=== PATIENT | female | born 1970 | race Caucasian/White ===

== ENCOUNTER 2016-09-19 21:42 | Emergency (ER) | payer BC ==
[2016-09-19 21:51] VITALS: RESP 16; TEMP 97.9
[2016-09-19] MEDS ORDERED: PROPARACAINE 0.5% 15 ML OPHT DROP LEFTEYE ONE (22:17)
[2016-09-19] MEDS ORDERED: FLUORESCEIN SODIUM 1 MG STRIP OP ONE ×2 (22:17→22:18)
[2016-09-19] MEDS ORDERED: PROPARACAINE 0.5% 15 ML OPHT DROP ONE (22:18)
[2016-09-19] MEDS ORDERED: OFLOXACIN 0.3% SOLN PREPACK OPHT.BTL TAKEHOME ONE (22:23)
[2016-09-19] MEDS ORDERED: KETOROLAC 0.5% 5 ML OPHT.BTL LEFTEYE ONE (22:23)
--- NOTE | 2016-09-19 22:27 | EDPHY ---
H & P Stated Complaint: scratched L eye Time Seen by Provider: 09/19/16 22:16 HPI/ROS: CHIEF COMPLAINT: Corneal abrasion HISTORY OF PRESENT ILLNESS: The patient is a 45-year-old female who comes to the emergency department complaining of an abrasion to her left eye. She states that she scraped her cornea when [place]. She has had a corneal abrasion in the past states that this feels very similar. She has not had any discharge. She has not had any vision changes. No photophobia. REVIEW OF SYSTEMS: Constitutional: denies: chills, fever, recent illness, recent injury EENTM: See HPI Respiratory: denies: cough, shortness of breath Cardiac: denies: chest pain, irregular heart rate, lightheadedness, palpitations Gastrointestinal/Abdominal: denies: abdominal pain, diarrhea, nausea, vomiting, blood streaked stools Genitourinary: denies: dysuria, frequency, hematuria, pain Musculoskeletal: denies: joint pain, muscle pain Skin: denies: lesions, rash, jaundice, bruising Neurological: denies: headache, numbness, paresthesia, tingling, dizziness, weakness Hematologic/Lymphatic: denies: blood clots, easy bleeding, easy bruising Immunologic/allergic: denies: HIV/AIDS, transplant EXAM: GENERAL: Well-appearing, well-nourished and in no acute distress. HEAD: Atraumatic, normocephalic. EYES: Small abrasion over the lateral aspect of cornea seen with fluorescein and proparacaine. Pupils equal round and reactive to light, extraocular movements intact, sclera anicteric. ENT: TMs normal, nares patent, oropharynx clear without exudates. Moist mucous membranes. NECK: Normal range of motion, supple without lymphadenopathy or JVD. LUNGS: Breath sounds clear to auscultation bilaterally and equal. No wheezes rales or rhonchi. HEART: Regular rate and rhythm without murmurs, rubs or gallops. ABDOMEN: Soft, nontender, normoactive bowel sounds. No guarding, no rebound. No masses appreciated. BACK: No CVA tenderness, no spinal tenderness, step-offs or deformities EXTREMITIES: Normal range of motion, no pitting or edema. No clubbing or cyanosis. NEUROLOGICAL: Cranial nerves II through XII grossly intact. Normal speech, normal gait. 5/5 strength, normal movement in all extremities, normal sensation PSYCH: Normal mood, normal affect. SKIN: Warm, dry, normal turgor, no visible rashes or lesions. Source: Patient Exam Limitations: No limitations - Personal History LMP (Females 10-55): Now Current Tetanus/Diphtheria Vaccine: Unsure Current Tetanus Diphtheria and Acellular Pertussis (TDAP): Unsure - Medical/Surgical History Hx Asthma: Yes Hx Chronic Respiratory Disease: No Hx Diabetes: No Hx Cardiac Disease: No Hx Renal Disease: No Hx Cirrhosis: No Hx Alcoholism: No Hx HIV/AIDS: No Hx Splenectomy or Spleen Trauma: No Other PMH: depression, asthma - Family History Significant Family History: No pertinent family hx - Social History Smoking Status: Never smoked Alcohol Use: Sober Drug Use: None Constitutional: Initial Vital Signs Temperature (C) 36.6 C 09/19/16 21:44 Heart Rate 94 09/19/16 21:44 Respiratory Rate 16 09/19/16 21:44 Blood Pressure 132/84 H 09/19/16 21:44 O2 Sat (%) 94 09/19/16 21:44 O2 Delivery Mode Room Air Allergies/Adverse Reactions: amoxicillin [From Augmentin] Allergy (Verified 09/19/16 21:48) clavulanic acid [From Augmentin] Allergy (Verified 09/19/16 21:48) Home Medications: Medication Instructions Recorded Wellbutrin Sr 09/19/16 Medical Decision Making ED Course/Re-evaluation: I will treat the patient's abrasion with antibiotic drops as well as ketorolac drops. She is happy with this plan and declines further workup or testing. I will refer her to Ophthalmology this appears to be very minor abrasion and will likely heal well. Differential Diagnosis: Partial list of the Differential diagnosis considered include but were not limited to; corneal abrasion, foreign body and although unlikely based on the history and physical exam, I also considered rust ring, ruptured globe, glaucoma. I discussed these differential diagnoses and the plan with the patient as well as the usual and expected course. The patient understands that the diagnosis is provisional and that in medicine we are not always correct and that further workup is often warranted. Usual and customary warnings were given. All of the patient's questions were answered. The patient was instructed to return to the emergency department should the symptoms at all worsen or return, otherwise to followup with the physician as we discussed. - Data Points Medications Given: Discontinued Medications Fluorescein Sodium ([id number]) 1 mg OP EDNOW ONE Stop: 09/19/16 22:18 Last Admin: 09/19/16 22:20 Dose: 1 mg Ketorolac Tromethamine (Acular 0.5% Opht Drops) 1 drops LEFTEYE QID ONE Stop: 09/19/16 22:24 Last Admin: 09/19/16 22:53 Dose: 1 drops Ofloxacin (Ocuflox 0.3% Opht Drops Prepack) 1 btl TAKEHOME EDNOW ONE Stop: 09/19/16 22:24 Last Admin: 09/19/16 22:51 Dose: 1 btl Proparacaine HCl (Alcaine 0.5%) 1 drops LEFTEYE ONCE ONE Stop: 09/19/16 22:18 Last Admin: 09/19/16 22:20 Dose: 1 drop Departure - Departure Disposition: Home, Routine, Self-Care Clinical Impression: Corneal abrasion, left Qualifiers: Encounter type: initial encounter Qualified Code(s): S05.02XA - Injury of conjunctiva and corneal abrasion without foreign body, left eye, initial encounter Condition: Fair Instructions: Corneal Abrasion (ED) Additional Instructions: Use the Ocuflox eyedrops 2 drops every 4 hours for 4 days These the ketorolac eyedrops three times daily as needed for pain 2 drops Referrals: Patrice Mathis MD [Medical Doctor] - As per Instructions
[2016-09-19 23:03] VITALS: BP 133/92; PULSE 85; O2SAT 95
== END 2016-09-19 23:03 | disposition home or self-care (01) ==
DX: S05.02XA Injury of conjunctiva and corneal abrasion without foreign body, left eye, initial encounter (principal); J45.909 Unspecified asthma, uncomplicated; X58.XXXA Exposure to other specified factors, initial encounter; Y92.813 Airplane as the place of occurrence of the external cause